=== PATIENT | female | born 1945 | race Caucasian/White ===

== ENCOUNTER 2019-08-18 11:25 | Outpatient (CLI) | payer MEDICARE | END 2019-08-18 23:59 | disposition home or self-care (01) | LOC: RAD 11:25 | PROVIDERS: ATTEND Nurse Practitioner | DX: J44.9 Chronic obstructive pulmonary disease, unspecified (principal) | CPT/HCPCS: 71046 ==

== ENCOUNTER → 2020-09-09 | Outpatient (CLI) | payer MEDICARE | END | disposition home or self-care (01) | LOC: CFH 14:47 | PROVIDERS: ATTEND Registered Nurse | DX: I35.8 Other nonrheumatic aortic valve disorders (principal); J96.11 Chronic respiratory failure with hypoxia; G47.33 Obstructive sleep apnea (adult) (pediatric); J44.9 Chronic obstructive pulmonary disease, unspecified; I10 Essential (primary) hypertension; E78.5 Hyperlipidemia, unspecified; Z68.35 Body mass index [BMI] 35.0-35.9, adult | CPT/HCPCS: 93306 ==